=== PATIENT | male | born 1950 | race Caucasian/White ===

== ENCOUNTER 2019-12-18 12:04 | Outpatient (CLI) | payer OTHER, BC | END 2019-12-18 12:18 | disposition home or self-care (01) | LOC: TOM 12:04 | PROVIDERS: ATTEND Specialist | DX: Q61.02 Congenital multiple renal cysts (principal); R07.89 Other chest pain; K57.32 Diverticulitis of large intestine without perforation or abscess without bleeding; D41.4 Neoplasm of uncertain behavior of bladder; K76.0 Fatty (change of) liver, not elsewhere classified; Z13.0 Encounter for screening for diseases of the blood and blood-forming organs and certain disorders involving the immune mechanism; Z13.6 Encounter for screening for cardiovascular disorders ==